=== PATIENT | male | born 1960 | race Caucasian/White ===

== ENCOUNTER 2021-10-11 09:56 | Emergency (ER) | payer MEDICAID, SELFPAY ==
[2021-10-11 10:03] VITALS: BP 127/100; PULSE 66; RESP 20; TEMP 35.7; O2SAT 96; BMI 25.7
--- NOTE | 2021-10-11 10:17 | CRLHL7_ITS ---
For Patients: As a result of the Century Cures Act, medical imaging exams and procedure reports are released immediately into your electronic medical record. You may view this report before your referring provider. If you have questions, please contact your health care provider. Indication: Dizziness Technique : Noncontrast head CT Comparison: No comparison Findings: Axial noncontrast images through the brain parenchyma demonstrates no acute intracranial hemorrhage or mass. No midline shift. No abnormal extra-axial air fluid collections are seen. Skull scalp appear unremarkable. Impression: No acute intracranial hemorrhage or mass. Please note that all CT scans at this facility use dose modulation, iterative reconstruction, and/or weight-based dosing when appropriate to reduce radiation dose to as low as reasonably achievable. Dictated by Rimma Degroot MD @ 10/11/2021 11:03:08 AM (Electronically Signed)
--- NOTE | 2021-10-11 10:20 | ED.GENADULT ---
HPI - General Adult General Time Seen by Provider: 10:19 Date Seen: 10/11/21 Chief complaint: Dizziness/Vertigo Stated complaint: Dizzy Time Seen by Provider: 10/11/21 10:00 Source: patient Mode of arrival: ambulatory Limitations: no limitations History of Present Illness HPI narrative: Patient is a 61 year white male diabetic, has had a history of a cardiac stent, who presents with dizziness since about 8:00 p.m. last night. [place] started to feel dizzy off balance a little disoriented. Disc denies drug or alcohol use. He does not have chest pain, shortness of breath, COVID symptoms. His blood sugar was elevated last night he reports in the 500 range. He did not take his insulin this morning, as he has not been eating because of his symptoms. He has no abdominal pain. No diarrhea, he does report that he was having to go to the bathroom both urine and stool more regularly than normal. Denies leg swelling or edema, clotting disorders. His chart was reviewed Related Data Home Medications Medication Instructions Recorded Confirmed atorvastatin 80 mg tablet mg 10/11/21 blood sugar diagnostic (Contour 10/11/21 10/11/21 Next Test Strips) exenatide microspheres 2 mg/0.85 mg SUBCUT 10/11/21 mL subcutaneous auto-injector ([employer]) gabapentin 100 mg capsule mg 10/11/21 hydroxyzine HCl 25 mg tablet mg 10/11/21 insulin aspart U-100 100 unit/mL SUBCUT 10/11/21 (3 mL) subcutaneous pen (Novolog Flexpen U-100 Insulin aspart) insulin glargine 100 unit/mL (3 unit SUBCUT 10/11/21 mL) subcutaneous pen (Lantus Solostar U-100 Insulin) losartan 25 mg tablet mg 10/11/21 metformin 500 mg tablet,extended mg PO 10/11/21 release 24 hr metoprolol succinate 50 mg mg PO 10/11/21 tablet,extended release 24 hr naproxen sodium 220 mg capsule mg 10/11/21 nitroglycerin 0.4 mg sublingual mg 10/11/21 tablet pen needle, diabetic 32 gauge x 10/11/21 10/11/2132 (BD Jaymie 2nd Gen Pen Needle) tadalafil 20 mg tablet mg 10/11/21 Allergies Allergy/AdvReac Type Severity Reaction Status Date / Time lisinopril AdvReac Verified 10/11/21 10:11 Review of Systems Status of ROS: Reports: 10 or more systems reviewed and unremarkable except as noted in History and below [facility] Medical History (Updated 10/11/21 @ 12:12 by Ilya Vanessa MD) DM (diabetes mellitus), type 2 Hyperlipidemia Hypertension Myocardial infarction Surgical History (Updated 10/11/21 @ 10:59 by Brigida Celis RN) History of back surgery History of eye surgery History of surgery on arm Stented coronary artery Family History Father Bladder cancer Prostate cancer Mother Heart disease Social History Narrative: exercise regularly former smoker Smoking Status: Former smoker Do you use any of these nicotine containing products: None Second hand tobacco smoke exposure: Yes How often do you have a drink containing alcohol: never How often do you have six or more drinks on one occasion: Never AUDIT-C Alcohol total score: 0 Non-prescribed substance use: denies use Exam Narrative: Exam Narrative: Objective: In general the patient is alert or x3 HEENT is unremarkable no facial asymmetry, mouth clear slightly dry, neck is supple Chest is clear Heart rhythm regular without murmur Abdomen benign soft nontender no hepatosplenomegaly Extremities are no edema, neurologic nonfocal in upper lower extremities No CMS distally problems Skin exam is unremarkable Const: Vital Signs, click to edit/add: Vital Signs - 24 hr 10/11/21 10:03 10/11/21 10:38 10/11/21 11:00 Temperature 96.3 F L Pulse Rate [Left P ulse Oximeter] 66 66 61 Respiratory Rate 20 12 12 Blood Pressure [Le ft Upper Arm] 127/100 H 128/90 H 120/78 Pulse Oximetry 96 97 96 Course Course Hospital Course: Because of the patient's cardiac history, as well as diabetic status will get an EKG, head CT scan given his dizziness, will also get laboratory studies. Will also get a troponin. Will give him IV fluid, Ativan, Zofran. He did report some el nasal tingling that now has resolved. Did not seem one-sided. Vital Signs Vital signs: Initial Vital Signs Temperature 96.3 F L 10/11/21 10:03 Temperature Source Temporal Artery Scan 10/11/21 10:03 Pulse Rate 66 10/11/21 10:03 Respiratory Rate 20 10/11/21 10:03 Blood Pressure 127/100 H 10/11/21 10:03 Blood Pressure Mean 109 10/11/21 10:03 Blood Pressure Position Sitting 10/11/21 10:03 Pulse Oximetry 96 10/11/21 10:03 Oxygen Delivery Method 10/11/21 10:03 Vital Signs Temperature 96.3 F L 10/11/21 10:03 Pulse Rate 66 10/11/21 10:03 Respiratory Rate 20 10/11/21 10:03 Blood Pressure 127/100 H 10/11/21 10:03 Pulse Oximetry 96 10/11/21 10:03 Temperature 96.3 F L 10/11/21 10:03 Pulse Rate 61 10/11/21 11:00 Respiratory Rate 12 10/11/21 11:00 Blood Pressure 120/78 10/11/21 11:00 Pulse Oximetry 96 10/11/21 11:00 Medical Decision Making [facility] Narrative Medical decision making narrative: Patient has a history of insulin-dependent diabetes, hyperglycemia noted yesterday, no insulin usage today I suspect he has got elevated blood sugar today. 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 Rule out viral syndrome, rule out acute coronary syndrome, rule out diabetic complication of hyperglycemia. Addendum: The patient's CT scan of the head is negative by my read his EKG shows normal sinus rhythm no acute ST T wave changes, his blood sugar was elevated 320 range. Because he has not been eating and not going to give additional insulin now but he can take this at home and he will follow his rib use additional regular as needed after he eats. He feels much better. He has no chest pain, his dizziness is improved. I think we can let him go home. His telemetry has shown no arrhythmia. Update Dr. Becker in the next couple of days with symptoms light activity, fluids, rest, careful monitoring his blood sugar. Return as needed sooner. Medical Records Medical records reviewed: Yes I reviewed the patient's medical records Lab Data Labs: Lab Results 10/11/21 10/11/21 10/11/21 Range/Units 10:40 10:40 11:08 WBC 6.24 (4.50-11.00) K/uL RBC 4.79 (4.30-5.90) m/uL Hgb 14.7 (13.5-17.5) gm/dL Hct 42.9 (37.0-53.0) % MCV 90 (80-100) fL MCH 31 (26-34) pg MCHC 34 (32-36) gm/dL RDW Coeff of Sang 11.7 (11.5-15.5) % Plt Count 201 (140-440) K/uL Neut % (Auto) 71.8 (42.0-72.0) % Lymph % (Auto) 15.1 L (20-44) % [place] % (Auto) 10.3 (0.0-11.0) % Eos % (Auto) 2.1 (0.0-7.0) % Baso % (Auto) 0.5 (0.0-3.0) % Neut # (Auto) 4.49 (1.7-7.0) K/uL Lymph # (Auto) 0.90 (0.90-2.90) K/uL [place] # (Auto) 0.60 (0.00-0.90) K/UL Eos # (Auto) 0.13 (0.00-0.50) K/uL Baso # (Auto) 0.03 (0.00-0.30) K/uL Abs Immat Gran (auto) 0.01 (0.00-0.30) K/uL Sodium 136 (135-149) mmol/L Potassium 4.3 (3.6-5.1) mmol/L Chloride 106 (96-114) mmol/L Carbon Dioxide 27 (20-32) mmol/L BUN 17 (7-30) mg/dL Creatinine 0.6 (0.5-1.5) mg/dL Estimated Creat Clear 132.56 Glucose 329 H (60-115) mg/dL Calcium 9.4 (8.4-10.6) mg/dL C-Reactive Protein < 0.5 L (0.5-1.0) mg/dL Urine Color Yellow (Yellow) Urine Appearance Clear (Clear) Urine pH 6.0 (5.0-8.5) Ur Specific [place] 1.025 (1.000-1.030) Urine Protein Negative (Negative) Urine Glucose (UA) 2+ A (Negative) Urine Ketones 2+ A (Negative) Urine Blood Negative (Negative) Urine Nitrite Negative (Negative) Urine Bilirubin Negative (Negative) Urine Urobilinogen 0.2 (0.2-1.0) Ur Leukocyte Esterase Negative (Negative) Urine RBC 0-2 (0-2) Urine WBC 0-2 (0-5) Ur Squamous Epith Cells None (None-Few) Amorphous Sediment (None) Other Sediment (None) Urine Bacteria None (None) Urine Mucus (None) POC Troponin I (0.01-0.04) ng/ml 10/11/21 Range/Units 11:08 WBC (4.50-11.00) K/uL RBC (4.30-5.90) m/uL Hgb (13.5-17.5) gm/dL Hct (37.0-53.0) % MCV (80-100) fL MCH (26-34) pg MCHC (32-36) gm/dL RDW Coeff of Sang (11.5-15.5) % Plt Count (140-440) K/uL Neut % (Auto) (42.0-72.0) % Lymph % (Auto) (20-44) % [place] % (Auto) (0.0-11.0) % Eos % (Auto) (0.0-7.0) % Baso % (Auto) (0.0-3.0) % Neut # (Auto) (1.7-7.0) K/uL Lymph # (Auto) (0.90-2.90) K/uL [place] # (Auto) (0.00-0.90) K/UL Eos # (Auto) (0.00-0.50) K/uL Baso # (Auto) (0.00-0.30) K/uL Abs Immat Gran (auto) (0.00-0.30) K/uL Sodium (135-149) mmol/L Potassium (3.6-5.1) mmol/L Chloride (96-114) mmol/L Carbon Dioxide (20-32) mmol/L BUN (7-30) mg/dL Creatinine (0.5-1.5) mg/dL Estimated Creat Clear Glucose (60-115) mg/dL Calcium (8.4-10.6) mg/dL C-Reactive Protein (0.5-1.0) mg/dL Urine Color (Yellow) Urine Appearance (Clear) Urine pH (5.0-8.5) Ur Specific [place] (1.000-1.030) Urine Protein (Negative) Urine Glucose (UA) (Negative) Urine Ketones (Negative) Urine Blood (Negative) Urine Nitrite (Negative) Urine Bilirubin (Negative) Urine Urobilinogen (0.2-1.0) Ur Leukocyte Esterase (Negative) Urine RBC (0-2) Urine WBC (0-5) Ur Squamous Epith Cells (None-Few) Amorphous Sediment (None) Other Sediment (None) Urine Bacteria (None) Urine Mucus (None) POC Troponin I 0.00 L (0.01-0.04) ng/ml Discharge Plan Discharge Clinical Impression: Dizziness, Acute hyperglycemia Patient Disposition: Home w/ Parent or Adult Condition: Improved Additional Instructions: Update Dr. Solis in the next couple of days, regular monitoring of blood sugar, small frequent meals. Light activity. Return sooner problems or concerns. Resume home medications Activity Level: Light activity Discharge Diet: Diabetic Prescriptions: No Action atorvastatin 80 mg tablet 0RF Label Comments: TAKE 1 TABLET BY MOUTH AT BEDTIME metoprolol succinate 50 mg tablet extended release 24 hr PO 0RF Label Comments: TAKE 1 TABLET BY MOUTH DAILY. (DME) Contour Next Test Strips Strip MISCELLANEOUS 0RF Label Comments: USE TO TEST FOUR TIMES A DAY losartan 25 mg tablet 0RF Label Comments: TAKE 1 TABLET BY MOUTH DAILY. nitroglycerin 0.4 mg tablet, sublingual 0RF Label Comments: TAKE 1 TABLET SUBLINGUALLY EVERY 5 MIN NEEDED hydroxyzine HCl 25 mg tablet 0RF Label Comments: TAKE 0.5 TO 1 TABLET EVERY 8 HOURS NEEDED FOR ANXIETY. gabapentin 100 mg capsule 0RF Label Comments: TAKE 1-3 CAPSULES BY MOUTH DAILY AT BEDTIME. metformin 500 mg tablet extended release 24 hr PO 0RF insulin aspart U-100 [Novolog Flexpen U-100 Insulin] 100 unit/mL (3 mL) insulin pen SUBCUT 0RF Label Comments: INJECT 5-10 UNIT SUBQ 3 TIMES DAILY WITH MEALS. tadalafil 20 mg tablet 0RF Label Comments: TAKE ONE TABLET BY MOUTH DIRECTED NEEDED EVERY 48-72 HOURS . insulin glargine [Lantus Solostar U-100 Insulin] 100 unit/mL (3 mL) insulin pen SUBCUT 0RF Label Comments: INJECT 50-60 UNITS SUBCUTANEOUSLY DAILY AT BEDTIME. (DME) pen needle, diabetic [BD Jaymie 2nd Gen Pen Needle] 32 gauge x 5/32 needle MISCELLANEOUS 0RF Label Comments: USE 1 SUBQUTANEOUSLY 4 TIMES A DAY *NEXT REFILL NEEDS TO COME FROM THERMODYNAMICS ENGINEER naproxen sodium 220 mg capsule 0RF Label Comments: TAKE 1 CAPSULE BY MOUTH TWICE A DAY NEEDED Bydureon BCise 2 mg/0.85 mL auto-injector SUBCUT 0RF Label Comments: INJECT 0.85 ML SUBCUTANEOUSLY ONCE A WEEK. Follow Up/Referrals: Jurgen Morrissey MD [Primary Care Provider] - Stand Alone Forms: [facility] Info Instructions
[2021-10-11 10:38] VITALS: BP 128/90; PULSE 66; RESP 12; O2SAT 97
[2021-10-11 10:54] LABS: Basophils Absolute Auto 0.03 K/uL (0.00-0.30); Basophils Percent Auto 0.5 % (0.0-3.0); Eosinophils Absolute Auto 0.13 K/uL (0.00-0.50); Eosinophils Percent Auto 2.1 % (0.0-7.0); Hematocrit 42.9 % (37.0-53.0); Hemoglobin* 14.7 gm/dL (13.5-17.5); Immature Granulocytes Abs Auto 0.01 K/uL (0.00-0.30); Lymphocytes Percent Auto 15.1 % (20-44); Mean Corpuscular HGB Conc 34 gm/dL (32-36); Mean Corpuscular Hemoglobin 31 pg (26-34); Mean Corpuscular Volume 90 fL (80-100); Monocytes Percent Auto 10.3 % (0.0-11.0); Neutrophils Absolute Auto 4.49 K/uL (1.7-7.0); Neutrophils Percent Auto 71.8 % (42.0-72.0); Platelet Count* 201 K/uL (140-440); RDW Coefficient of Variation % 11.7 % (11.5-15.5); Red Blood Count 4.79 m/uL (4.30-5.90); White Blood Count* 6.24 K/uL (4.50-11.00)
[2021-10-11] MEDS: 0.9 % SODIUM CHLORIDE 1000 ml 1,000 ML 6000 ML IV (10:54)
[2021-10-11] MEDS: LORazepam 1 MG TABLET PO (10:54)
[2021-10-11] MEDS: ONDANSETRON 2 MG/ML inj 4 MG IVP (10:55)
[2021-10-11 11:00] VITALS: BP 120/78; PULSE 61; RESP 12; O2SAT 96
[2021-10-11 11:04] LABS: Slide Review Reflex No
[2021-10-11 11:05] LABS: Chloride* 106 mmol/L (96-114); Sodium* 136 mmol/L (135-149)
[2021-10-11 11:06] LABS: Potassium* 4.3 mmol/L (3.6-5.1)
[2021-10-11 11:08] LABS: Creatinine* 0.6 mg/dL (0.5-1.5); Est. Creatinine Clearance* 132.56
[2021-10-11 11:09] LABS: Blood Urea Nitrogen* 17 mg/dL (7-30); Calcium* 9.4 mg/dL (8.4-10.6); Carbon Dioxide* 27 mmol/L (20-32); Glucose* 329 mg/dL (60-115)
[2021-10-11 11:17] LABS: Appearance Urine Clear (Clear); Bilirubin Urine Negative (Negative); Blood Urine Negative (Negative); Color Urine Yellow (Yellow); Glucose Urine 2+ (Negative); Ketones Urine 2+ (Negative); Leukocyte Esterase Urine Negative (Negative); Nitrite Urine Negative (Negative); Protein Urine Negative (Negative); Specific Gravity Urine 1.025 (1.000-1.030); Urobilinogen Urine 0.2 (0.2-1.0)
[2021-10-11 11:20] LABS: C Reactive Protein* < 0.5 mg/dL (0.5-1.0)
[2021-10-11 11:30] VITALS: BP 126/82; PULSE 61; RESP 12; O2SAT 96
[2021-10-11 11:43] LABS: SARS PCR* Negative SARS-CoV-2 (Negative)
[2021-10-11 11:45] LABS: RBC Urine 0-2 (0-2); WBC Urine 0-2 (0-5)
[2021-10-11 12:00] VITALS: BP 132/86; PULSE 68; RESP 16; O2SAT 96
[2021-10-11 12:25] VITALS: BP 132/86; PULSE 68; RESP 16
== END 2021-10-11 12:20 ==
PROVIDERS: Emergency Provider Family Medicine; PCP Family Medicine
DX: E11.65 Type 2 diabetes mellitus with hyperglycemia (principal)
CPT/HCPCS: 96374; 36415; 70450; 80048; 81001; 84484; 85025; 86140; 87086; 87635; 93005; 99284; 99285; A9270; J2405; J7030

== ENCOUNTER 2021-11-18 16:29 | Outpatient (CLI) | payer MEDICAID, SELFPAY ==
[2021-11-18 21:58] LABS: Microalbumin Creatinine Ratio 20 mg/g (0-30); Microalbumin Urine 3 mg/dL
== END 2021-11-18 16:30 | disposition home or self-care (01) ==
PROVIDERS: PCP Family Medicine; Visit Provider Family Medicine
DX: E11.9 Type 2 diabetes mellitus without complications (principal); I10 Essential (primary) hypertension; Z79.4 Long term (current) use of insulin
CPT/HCPCS: 82043; 82570

== ENCOUNTER 2022-03-03 08:54 | Inpatient (IN) | payer MEDICAID, SELFPAY ==
[2022-03-03] VITALS (15 sets, daily range): BP systolic 116–187; BP diastolic 74–95; PULSE 95–122; RESP 20–22; TEMP 35.8–37.1; O2SAT 97–100; BMI 26.6; BMI 25.1
--- NOTE | 2022-03-03 09:55 | CRLHL7_ITS ---
For Patients: As a result of the Cures Act, medical imaging exams and procedure reports are released immediately into your electronic medical record. You may view this report before your referring provider. If you have questions, please contact your health care provider. INDICATION: Shortness of breath TECHNIQUE: Chest 1 view COMPARISON: 03/02/2022 FINDINGS: Cardiovascular and mediastinum: Heart size and vasculature are normal in caliber and appearance. Lungs and pleural spaces: Lungs are clear. No sign of infiltrate or mass. No sign of pleural effusion. No pneumothorax. Bones and soft tissues: Degenerative changes of both shoulders. Discogenic spurring thoracic spine. IMPRESSION: No acute findings. No developing CHF. Dictated by Joao Barragan MD @ 03/03/2022 10:39:02 AM (Electronically Signed)
[2022-03-03 10:07] LABS: Appearance Urine Clear (Clear); Bilirubin Urine Negative (Negative); Blood Urine 2+ (Negative); Color Urine Yellow (Yellow); Glucose Urine 2+ (Negative); Ketones Urine 4+ (Negative); Leukocyte Esterase Urine Negative (Negative); Nitrite Urine Negative (Negative); Protein Urine 2+ (Negative); Specific Gravity Urine >= 1.030 (1.000-1.030); Urobilinogen Urine 0.2 (0.2-1.0)
[2022-03-03 10:14] LABS: HCO3 VBG 4 mmol/L (21-28); PCO2 VBG 24 mmHG (40-50); PO2 VBG 48.9 mmHG (25-47)
[2022-03-03 10:17] LABS: pH VBG 6.868 (7.32-7.43)
[2022-03-03] MEDS: 0.9 % SODIUM CHLORIDE 1000 ml 1,000 ML IV ×2 (10:27→11:12)
[2022-03-03 10:32] LABS: Lactate* 5.5 mmol/L (0.5-1.9)
[2022-03-03 10:34] LABS: D Dimer Quantitative* 2.07 ug/ml (0.00-0.50)
[2022-03-03 10:35] LABS: RBC Urine 0-2 (0-2); Squamous Epithelial Cell Urine Few (None-Few); WBC Urine 0-2 (0-5)
[2022-03-03 10:36] LABS: Albumin* 5.3 g/dL (3.3-5.0)
[2022-03-03 10:37] LABS: Amorphous Sediment Urine Few
[2022-03-03 10:37] LABS: Chloride* 101 mmol/L (96-114); Sodium* 135 mmol/L (135-149)
[2022-03-03 10:39] LABS: Creatinine* 1.4 mg/dL (0.5-1.5); Est. Creatinine Clearance* 53.12; Estimated Glomerular Filt Rate 58 ml/min
[2022-03-03 10:40] LABS: Alanine Aminotransferase* 26 U/L (4-50); Alkaline Phosphatase* 177 U/L (40-150); Aspartate Amino Transferase* 24 U/L (12-35); Bilirubin Direct* 0.5 mg/dL (0.0-0.5); Bilirubin Total* 0.6 mg/dL (0.1-1.5); Blood Urea Nitrogen* 24 mg/dL (7-30); Calcium* 9.9 mg/dL (8.4-10.6); Lipase* 58 U/L (23-300)
[2022-03-03 10:43] LABS: C Reactive Protein* 6.5 mg/dL (0.5-1.0)
[2022-03-03 10:49] LABS: Carbon Dioxide* < 5 mmol/L (20-32); NT Pro B Type NatriureticPept* 56 PG/mL (0-125); Potassium* 7.1 mmol/L (3.6-5.1)
[2022-03-03 10:50] LABS: Ethanol* < 0.01 % (0.01-0.03); Glucose* 625 mg/dL (60-115)
[2022-03-03 10:56] LABS: PCR FLU A Negative PCR FLU A (Negative); PCR FLU B Negative PCR FLU B (Negative); SARS PCR* Negative SARS-CoV-2 (Negative)
[2022-03-03 10:57] LABS: PCR RSV Negative PCR RSV (Negative)
[2022-03-03 11:29] LABS: Troponin I* < 0.01 ng/mL (0.01-0.04)
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
[2022-03-03] MEDS: INSULIN INF 100 UNIT/100 ML 100 UNIT/100 ML BAG 8 UNIT IVPB (11:44)
[2022-03-03] MEDS: SODIUM BICARBONATE 50 MEQ/50ML SYRINGE IVP ×3 (11:46→13:44)
[2022-03-03] MEDS: LORazepam 2 MG/ML inj 1 MG IVP (11:47)
[2022-03-03 12:37] LABS: HCO3 VBG 6 mmol/L (21-28); PCO2 VBG 25 mmHG (40-50)
[2022-03-03 12:45] LABS: pH VBG 6.982 (7.32-7.43)
[2022-03-03 12:56] LABS: Chloride* 110 mmol/L (96-114); Potassium* 5.8 mmol/L (3.6-5.1); Sodium* 141 mmol/L (135-149)
[2022-03-03 12:58] LABS: Creatinine* 1.2 mg/dL (0.5-1.5); Est. Creatinine Clearance* 61.97; Estimated Glomerular Filt Rate 70 ml/min
[2022-03-03 12:59] LABS: Blood Urea Nitrogen* 24 mg/dL (7-30); Calcium* 8.8 mg/dL (8.4-10.6)
[2022-03-03 13:00] LABS: Magnesium* 2.3 mg/dL (1.5-2.6)
[2022-03-03 13:01] LABS: Glucose* 490 mg/dL (60-115)
[2022-03-03] MEDS: 0.45 % SODIUM CHLORIDE 1000 ML 1,000 ML 100 ML IV (13:43)
[2022-03-03 14:30] LABS: HCO3 VBG 9 mmol/L (21-28); PCO2 VBG 27 mmHG (40-50); PO2 VBG 32.4 mmHG (25-47)
[2022-03-03 14:52] LABS: Chloride* 110 mmol/L (96-114); Potassium* 4.6 mmol/L (3.6-5.1); Sodium* 139 mmol/L (135-149)
[2022-03-03 14:55] LABS: Blood Urea Nitrogen* 23 mg/dL (7-30); Calcium* 8.6 mg/dL (8.4-10.6); Est. Creatinine Clearance* 74.36; Estimated Glomerular Filt Rate 87 ml/min
[2022-03-03 15:02] LABS: Carbon Dioxide* 9 mmol/L (20-32); Glucose* 383 mg/dL (60-115)
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
[2022-03-03 16:49] LABS: HCO3 VBG 13 mmol/L (21-28); PCO2 VBG 32 mmHG (40-50); PO2 VBG 28.1 mmHG (25-47)
[2022-03-03 16:53] LABS: pH VBG 7.227 (7.32-7.43)
[2022-03-03] MEDS: PANTOPRAZOLE SODIUM 40 MG INJ IVP (16:59)
[2022-03-03] MEDS: BENZOCAINE/MENTHOL 1 EACH LOZENGE MUCOUS MEM (17:00)
[2022-03-03 17:15] LABS: Chloride* 109 mmol/L (96-114); Potassium* 4.1 mmol/L (3.6-5.1); Sodium* 137 mmol/L (135-149)
[2022-03-03 17:17] LABS: Creatinine* 0.9 mg/dL (0.5-1.5); Est. Creatinine Clearance* 82.63; Estimated Glomerular Filt Rate 98 ml/min
[2022-03-03 17:18] LABS: Blood Urea Nitrogen* 23 mg/dL (7-30); Calcium* 8.7 mg/dL (8.4-10.6); Carbon Dioxide* 12 mmol/L (20-32); Glucose* 271 mg/dL (60-115)
--- NOTE | 2022-03-03 18:33 | PC.NURSE ---
Addendum entered by Rosalia Chapa RN 03/03/22 19:18: Blood glucose checked @ 1855 and was 184, updated and ordered insulin drip to be turned to 10units/hr. Original Note: Shift Summary: Patient pleasant and cooperative. Weak with unsteady gait, needing SBA with gait belt to bathroom, independent at baseline. Continues to have IV insulin with hourly blood glucose checks. Tele shows sinus tach. Denies chest pain but reports SOB, o2 sats >90% on RA. Dry cough which patient stated he has had since tuesday. Poor appetite reported since tuesday.
[2022-03-03] MEDS: INSULIN INF 100 UNIT/100 ML 100 UNIT/100 ML BAG 10 UNIT IVPB (19:00)
[2022-03-03 20:11] LABS: HCO3 VBG 20 mmol/L (21-28); PCO2 VBG 38 mmHG (40-50); PO2 VBG 24.8 mmHG (25-47); pH VBG 7.318 (7.32-7.43)
[2022-03-03 20:26] LABS: Chloride* 110 mmol/L (96-114)
[2022-03-03 20:27] LABS: Potassium* 4.2 mmol/L (3.6-5.1); Sodium* 137 mmol/L (135-149)
[2022-03-03 20:29] LABS: Creatinine* 0.8 mg/dL (0.5-1.5); Est. Creatinine Clearance* 92.95; Estimated Glomerular Filt Rate 102 ml/min
[2022-03-03 20:30] LABS: Blood Urea Nitrogen* 21 mg/dL (7-30); Calcium* 8.8 mg/dL (8.4-10.6); Carbon Dioxide* 19 mmol/L (20-32); Glucose* 171 mg/dL (60-115)
[2022-03-03] MEDS: ENOXAPARIN 40 MG/0.4 ML INJ SUBCUT (21:33)
[2022-03-03] MEDS: 5 % DEX/0.45 SOD CHL+KCL20 mEq 1,000 ML 150 ML IV (21:33)
[2022-03-03 23:26] LABS: HCO3 VBG 17 mmol/L (21-28); PCO2 VBG 32 mmHG (40-50); PO2 VBG 62.7 mmHG (25-47); pH VBG 7.341 (7.32-7.43)
[2022-03-03 23:42] LABS: Chloride* 111 mmol/L (96-114); Potassium* 3.7 mmol/L (3.6-5.1); Sodium* 135 mmol/L (135-149)
[2022-03-03 23:45] LABS: Blood Urea Nitrogen* 18 mg/dL (7-30); Carbon Dioxide* 16 mmol/L (20-32); Creatinine* 0.6 mg/dL (0.5-1.5); Est. Creatinine Clearance* 123.94; Estimated Glomerular Filt Rate 111 ml/min
[2022-03-03 23:46] LABS: Calcium* 8.5 mg/dL (8.4-10.6); Glucose* 145 mg/dL (60-115)
[2022-03-04] VITALS (11 sets, daily range): BP systolic 110–140; BP diastolic 71–105; PULSE 80–103; RESP 18–20; TEMP 36.5–37.1; O2SAT 92–100
[2022-03-04] MEDS: 5 % DEX/0.45 SOD CHL+KCL20 mEq 1,000 ML 150 ML IV (04:11)
--- NOTE | 2022-03-04 05:02 | PC.NURSE ---
Shift note: The pt had been on Insulin drip ; which was stopped at 2200 last night after Anion gap was closed by . Blood glucose has been checked q2h after the drip was stopped, and NovoLog given per sliding scale. The pt appeared fatigue; he has been sleeping comfortable ; denied chest pain. Denied nausea and vomiting. The pt drunk small apple juice and refused to try to eat. The pt has been coughing dry and this Am reported productive cough. Tele was showing sinus Tachycardia last evening, throughout the night NSR with HR in the 90s.
--- NOTE | 2022-03-04 07:43 | P.IMPN_ITS ---
Progress Note: A&P Assessment and plan (1) DKA, type 2: Problem details: - given bicarb and IVF bolus in ED - started on insulin drip for + AG acidosis - on admission, treated with insulin drip, IV fluids, potassium supplementation (all discontinued after resolution of acidosis) - Basal insulin restarted 03/03 pm, will continue mealtime insulin at home dose with sliding scale coverage to help guide discharge regimen - this degree of illness is concerning for type 1DM diagnosis. Consider outpatient Endocrinology f/u Status: Acute (2) Shortness of breath: Problem details: - likely 2/2 acidosis, no concern for acute cardiac or respiratory process - follow troponin given history - resolved with resolution of acidosis Status: Acute (3) Cough: Problem details: - no evidence of acute infection by exam or chest x-ray - symptomatic cares, consider chest CT if symptoms were to worsen Status: Acute (4) Essential hypertension: Problem details: - stable, continue home meds Status: Acute (5) Hypercholesterolemia: Problem details: - stable, continue home meds - 07/23/2021-LDL 66 Status: Acute Plan - per above - Lovenox for prophylaxis - plans to discharge home when clinically appropriate Subjective Date Seen: 03/04/22 Interval history: Patient's acidosis resolved overnight, insulin gtt discontinued, basal insulin given. Patient complains of cough this morning, no other concerns. No nausea today, ready to eat breakfast. Exam Narrative: Exam Narrative: GEN: Alert and oriented, sitting comfortably in bed and answering questions appropriately HEENT: Normal external ears, EOMIs bilaterally, right pupil abnormality is stable, baseline, unchanged CV: RRR, No concerning murmurs, rubs, or gallops R: LCTA bilaterally without concerning wheezing, rales, or rhonchi Ext: wwp, no concerning edema Skin: No concerning skin lesions or rashes on exposed skin Neuro: Nonfocal Psych: Appropriate Const: Vital Signs, click to edit/add: Vital Signs - 24 hr 03/03/22 09:04 03/03/22 09:54 03/03/22 12:02 Temperature 96.5 F L Pulse Rate Pulse Rate [Left P ulse Oximeter] 100 Respiratory Rate 22 Blood Pressure 149/89 H Blood Pressure [Le ft Arm] Blood Pressure [Ri ght Upper Arm] 187/95 H Pulse Oximetry 99 99 Oxygen Delivery Me thod Room Air 03/03/22 13:39 03/03/22 13:42 03/03/22 14:00 Temperature Pulse Rate 120 H 120 H 114 H Pulse Rate [Left P ulse Oximeter] Respiratory Rate Blood Pressure 144/89 H Blood Pressure [Le ft Arm] Blood Pressure [Ri ght Upper Arm] Pulse Oximetry 98 100 99 Oxygen Delivery Me thod 03/03/22 14:37 03/03/22 15:00 03/03/22 15:30 Temperature Pulse Rate 122 H 112 H 109 H Pulse Rate [Left P ulse Oximeter] Respiratory Rate Blood Pressure Blood Pressure [Le ft Arm] Blood Pressure [Ri ght Upper Arm] Pulse Oximetry 99 99 98 Oxygen Delivery Me thod 03/03/22 16:24 03/03/22 16:34 03/03/22 16:47 Temperature 98.5 F Pulse Rate 109 H Pulse Rate [Left P ulse Oximeter] 118 H Respiratory Rate 20 20 Blood Pressure Blood Pressure [Le ft Arm] 116/75 Blood Pressure [Ri ght Upper Arm] Pulse Oximetry 98 98 Oxygen Delivery Me thod Room Air Room Air 03/03/22 20:00 03/03/22 23:30 03/03/22 23:30 Temperature 98.5 F 98.7 F Pulse Rate Pulse Rate [Left P ulse Oximeter] 105 H 96 Respiratory Rate 20 20 20 Blood Pressure Blood Pressure [Le ft Arm] 121/78 121/74 Blood Pressure [Ri ght Upper Arm] Pulse Oximetry 100 97 97 Oxygen Delivery Me thod Room Air Room Air Room Air 03/03/22 23:00 03/04/22 00:13 03/04/22 04:00 Temperature 98.4 F Pulse Rate 95 Pulse Rate [Left P ulse Oximeter] 96 91 Respiratory Rate 20 20 Blood Pressure Blood Pressure [Le ft Arm] 130/78 Blood Pressure [Ri ght Upper Arm] Pulse Oximetry 99 Oxygen Delivery Me thod Room Air 03/04/22 04:00 Temperature Pulse Rate Pulse Rate [Left P ulse Oximeter] 91 Respiratory Rate 20 Blood Pressure Blood Pressure [Le ft Arm] Blood Pressure [Ri ght Upper Arm] Pulse Oximetry Oxygen Delivery Me thod Labs Labs: Laboratory Results - last 24 hr 03/03/22 03/03/22 03/03/22 09:10 09:10 09:56 D-Dimer Quant (PE/DVT) VBG pH VBG pCO2 VBG pO2 VBG HCO3 Sodium Potassium Chloride Carbon Dioxide BUN Creatinine Estimated Creat Clear Estimated GFR Glucose Lactate Calcium Magnesium Total Bilirubin Direct Bilirubin AST ALT Alkaline Phosphatase Troponin I C-Reactive Protein NT-Pro-B Natriuret Pep Total Protein Albumin Lipase Urine Color Yellow Urine Appearance Clear Urine pH 5.0 Ur Specific [place] >= 1.030 Urine Protein 2+ A Urine Glucose (UA) 2+ A Urine Ketones 4+ A Urine Blood 2+ A Urine Nitrite Negative Urine Bilirubin Negative Urine Urobilinogen 0.2 Ur Leukocyte Esterase Negative Urine RBC 0-2 Urine WBC 0-2 Ur Squamous Epith Cells Few Amorphous Sediment Few A Urine Bacteria None Ethyl Alcohol SARS-CoV-2 (PCR) Cancelled Negative SARS-CoV-2 Influenza Type A (PCR) Cancelled Negative PCR FLU A Influenza Type B (PCR) Cancelled Negative PCR FLU B RSV (PCR) Negative PCR RSV 03/03/22 03/03/22 03/03/22 10:08 10:08 10:08 D-Dimer Quant (PE/DVT) 2.07 H VBG pH VBG pCO2 VBG pO2 VBG HCO3 Sodium 135 Potassium 7.1 H* Chloride 101 Carbon Dioxide < 5 L* BUN 24 Creatinine 1.4 Estimated Creat Clear 53.12 Estimated GFR 58 Glucose 625 H* Lactate 5.5 H* Calcium 9.9 Magnesium Total Bilirubin 0.6 Direct Bilirubin 0.5 AST 24 ALT 26 Alkaline Phosphatase 177 H Troponin I C-Reactive Protein 6.5 H NT-Pro-B Natriuret Pep Total Protein 9.0 H Albumin 5.3 H Lipase 58 Urine Color Urine Appearance Urine pH Ur Specific [place] Urine Protein Urine Glucose (UA) Urine Ketones Urine Blood Urine Nitrite Urine Bilirubin Urine Urobilinogen Ur Leukocyte Esterase Urine RBC Urine WBC Ur Squamous Epith Cells Amorphous Sediment Urine Bacteria Ethyl Alcohol < 0.01 L SARS-CoV-2 (PCR) Influenza Type A (PCR) Influenza Type B (PCR) RSV (PCR) 03/03/22 03/03/22 03/03/22 10:08 10:08 10:08 D-Dimer Quant (PE/DVT) VBG pH 6.868 L* VBG pCO2 24 L VBG pO2 48.9 H VBG HCO3 4 L Sodium Potassium Chloride Carbon Dioxide BUN Creatinine Estimated Creat Clear Estimated GFR Glucose Lactate Calcium Magnesium Total Bilirubin Direct Bilirubin AST ALT Alkaline Phosphatase Troponin I < 0.01 L C-Reactive Protein NT-Pro-B Natriuret Pep 56 Total Protein Albumin Lipase Urine Color Urine Appearance Urine pH Ur Specific [place] Urine Protein Urine Glucose (UA) Urine Ketones Urine Blood Urine Nitrite Urine Bilirubin Urine Urobilinogen Ur Leukocyte Esterase Urine RBC Urine WBC Ur Squamous Epith Cells Amorphous Sediment Urine Bacteria Ethyl Alcohol SARS-CoV-2 (PCR) Influenza Type A (PCR) Influenza Type B (PCR) RSV (PCR) 03/03/22 03/03/22 03/03/22 12:30 12:30 12:30 D-Dimer Quant (PE/DVT) VBG pH 6.982 L* VBG pCO2 25 L VBG pO2 33.0 VBG HCO3 6 L Sodium 141 Potassium 5.8 H Chloride 110 Carbon Dioxide BUN 24 Creatinine 1.2 Estimated Creat Clear 61.97 Estimated GFR 70 Glucose 490 H* Lactate Calcium 8.8 Magnesium 2.3 Total Bilirubin Direct Bilirubin AST ALT Alkaline Phosphatase Troponin I C-Reactive Protein NT-Pro-B Natriuret Pep Total Protein Albumin Lipase Urine Color Urine Appearance Urine pH Ur Specific [place] Urine Protein Urine Glucose (UA) Urine Ketones Urine Blood Urine Nitrite Urine Bilirubin Urine Urobilinogen Ur Leukocyte Esterase Urine RBC Urine WBC Ur Squamous Epith Cells Amorphous Sediment Urine Bacteria Ethyl Alcohol SARS-CoV-2 (PCR) Influenza Type A (PCR) Influenza Type B (PCR) RSV (PCR) 03/03/22 03/03/22 03/03/22 14:25 14:25 16:14 D-Dimer Quant (PE/DVT) VBG pH 7.150 L* 7.227 L* VBG pCO2 27 L 32 L VBG pO2 32.4 28.1 VBG HCO3 9 L 13 L Sodium 139 Potassium 4.6 Chloride 110 Carbon Dioxide 9 L* BUN 23 Creatinine 1.0 Estimated Creat Clear 74.36 Estimated GFR 87 Glucose 383 H* Lactate Calcium 8.6 Magnesium Total Bilirubin Direct Bilirubin AST ALT Alkaline Phosphatase Troponin I C-Reactive Protein NT-Pro-B Natriuret Pep Total Protein Albumin Lipase Urine Color Urine Appearance Urine pH Ur Specific [place] Urine Protein Urine Glucose (UA) Urine Ketones Urine Blood Urine Nitrite Urine Bilirubin Urine Urobilinogen Ur Leukocyte Esterase Urine RBC Urine WBC Ur Squamous Epith Cells Amorphous Sediment Urine Bacteria Ethyl Alcohol SARS-CoV-2 (PCR) Influenza Type A (PCR) Influenza Type B (PCR) RSV (PCR) 03/03/22 03/03/22 03/03/22 16:43 20:04 20:04 D-Dimer Quant (PE/DVT) VBG pH 7.318 L VBG pCO2 38 L VBG pO2 24.8 L VBG HCO3 20 L Sodium 137 137 Potassium 4.1 4.2 Chloride 109 110 Carbon Dioxide 12 L 19 L BUN 23 21 Creatinine 0.9 0.8 Estimated Creat Clear 82.63 92.95 Estimated GFR 98 102 Glucose 271 H 171 H Lactate Calcium 8.7 8.8 Magnesium Total Bilirubin Direct Bilirubin AST ALT Alkaline Phosphatase Troponin I C-Reactive Protein NT-Pro-B Natriuret Pep Total Protein Albumin Lipase Urine Color Urine Appearance Urine pH Ur Specific [place] Urine Protein Urine Glucose (UA) Urine Ketones Urine Blood Urine Nitrite Urine Bilirubin Urine Urobilinogen Ur Leukocyte Esterase Urine RBC Urine WBC Ur Squamous Epith Cells Amorphous Sediment Urine Bacteria Ethyl Alcohol SARS-CoV-2 (PCR) Influenza Type A (PCR) Influenza Type B (PCR) RSV (PCR) 03/03/22 03/03/22 23:15 23:15 D-Dimer Quant (PE/DVT) VBG pH 7.341 VBG pCO2 32 L VBG pO2 62.7 H VBG HCO3 17 L Sodium 135 Potassium 3.7 Chloride 111 Carbon Dioxide 16 L BUN 18 Creatinine 0.6 Estimated Creat Clear 123.94 Estimated GFR 111 Glucose 145 H Lactate Calcium 8.5 Magnesium Total Bilirubin Direct Bilirubin AST ALT Alkaline Phosphatase Troponin I C-Reactive Protein NT-Pro-B Natriuret Pep Total Protein Albumin Lipase Urine Color Urine Appearance Urine pH Ur Specific [place] Urine Protein Urine Glucose (UA) Urine Ketones Urine Blood Urine Nitrite Urine Bilirubin Urine Urobilinogen Ur Leukocyte Esterase Urine RBC Urine WBC Ur Squamous Epith Cells Amorphous Sediment Urine Bacteria Ethyl Alcohol SARS-CoV-2 (PCR) Influenza Type A (PCR) Influenza Type B (PCR) RSV (PCR)
[2022-03-04 07:51] LABS: HCO3 VBG 20 mmol/L (21-28); PCO2 VBG 35 mmHG (40-50); PO2 VBG 37.4 mmHG (25-47); pH VBG 7.373 (7.32-7.43)
[2022-03-04 07:52] LABS: Basophils Percent Auto 0.1 % (0.0-3.0); Eosinophils Percent Auto 0.1 % (0.0-7.0); Hematocrit 35.6 % (37.0-53.0); Hemoglobin* 12.7 gm/dL (13.5-17.5); Immature Granulocytes Pct Auto 0.2 %; Lymphocytes Percent Auto 8.5 % (20-44); Mean Corpuscular HGB Conc 36 gm/dL (32-36); Mean Corpuscular Hemoglobin 31 pg (26-34); Mean Corpuscular Volume 88 fL (80-100); Monocytes Percent Auto 11.7 % (0.0-11.0); Neutrophils Percent Auto 79.4 % (42.0-72.0); Platelet Count* 271 K/uL (140-440); RDW Coefficient of Variation % 11.5 % (11.5-15.5); Red Blood Count 4.05 m/uL (4.30-5.90); White Blood Count* 11.74 K/uL (4.50-11.00)
[2022-03-04 07:55] LABS: Slide Review Reflex No
[2022-03-04] MEDS: 5 % DEX/0.45 SOD CHL+KCL20 mEq 1,000 ML 75 ML IV ×2 (08:06→21:01)
[2022-03-04] MEDS: BENZOCAINE/MENTHOL 1 EACH LOZENGE MUCOUS MEM ×2 (08:13→21:18)
[2022-03-04 08:25] LABS: Albumin* 3.7 g/dL (3.3-5.0); Chloride* 109 mmol/L (96-114)
[2022-03-04 08:26] LABS: Potassium* 4.2 mmol/L (3.6-5.1); Sodium* 135 mmol/L (135-149)
[2022-03-04 08:28] LABS: Alkaline Phosphatase* 82 U/L (40-150); Aspartate Amino Transferase* 24 U/L (12-35); Bilirubin Total* 0.4 mg/dL (0.1-1.5); Blood Urea Nitrogen* 14 mg/dL (7-30); Carbon Dioxide* 18 mmol/L (20-32); Creatinine* 0.6 mg/dL (0.5-1.5); Est. Creatinine Clearance* 123.94; Estimated Glomerular Filt Rate 111 ml/min; Glucose* 258 mg/dL (60-115); Total Protein* 6.5 g/dL (6.0-8.3)
[2022-03-04 08:29] LABS: Alanine Aminotransferase* 17 U/L (4-50); Calcium* 8.6 mg/dL (8.4-10.6); Magnesium* 1.8 mg/dL (1.5-2.6)
[2022-03-04 08:41] LABS: Troponin I* 0.03 ng/mL (0.01-0.04)
[2022-03-04] MEDS: LOSARTAN POTASSIUM 50 MG TABLET PO (08:42)
[2022-03-04] MEDS: guaiFENesin 100 MG/ML CUP PO ×3 (08:42→19:41)
[2022-03-04] MEDS: METOPROLOL SUCCINATE (XL) 50 MG TAB PO (08:42)
[2022-03-04 10:31] LABS: Lactate* 1.2 mmol/L (0.5-1.9)
[2022-03-04] MEDS: PANTOPRAZOLE SODIUM 40 MG INJ IVP (15:31)
[2022-03-04] MEDS: ACETAMINOPHEN 325 MG TABLET 975 MG PO ×2 (15:31→21:03)
[2022-03-04] MEDS: SODIUM CHLORIDE 0.9 % (FLUSH) 10 ML SYRINGE 5 ML IVF (15:32)
--- NOTE | 2022-03-04 18:22 | PC.NURSE ---
End of shift note. Pt has been very pleasant. chest pain with coughing po tyleol was given with relief. he also got cough medicine with relief. :Pt BS 233/265/198 insulin was given. scheduled dose and sliding scale. pt is weak tired and fatigue; he is eating, drinking and voiding. Tele shows sinus Tachycardia. he complains of stuff nose and congestion in the throat. scds are on. he is up with SBA and IV pole to the BR. he has not been SOB or dizzy.
[2022-03-04] MEDS: CARBOXYMETHYLCELLULOSE (REFRESH PLUS) TEARS 1 DROP EYE-BOTH (21:02)
[2022-03-04] MEDS: ATORVASTATIN CALCIUM 40 MG TABLET 80 MG PO (21:02)
[2022-03-04] MEDS: ENOXAPARIN 40 MG/0.4 ML INJ SUBCUT (21:11)
--- NOTE | 2022-03-05 00:08 | PC.NURSE ---
Shift Note: Pt a/o and able to verbalize needs. VS WNL. Tele=NSR. Afebrile. Moves well with SBA. QI=281 and 198. Maintenance fluids running at 75/hr. Frequent cough with minimal expectoration, pt c/o chest discomfort with coughing. Tylenol and Robitussin given PRN. Pt also c/o eye discomfort, states it feels like there is sandpaper in my eyes. Upon initial assessment eyes appeared to have mild erythema to sclera without discharge. PRN eye drops given with little relief. Upon later assessment pt did begin to have greenish/yellow mucoid discharge and face was cleansed with warm washcloth. Pt is now experiencing moderate to large amounts of drainage and ongoing discomfort. MD updated and will come assess.
--- NOTE | 2022-03-05 00:24 | P.IMPN_ITS ---
Progress Note: A&P Assessment and plan (1) Conjunctivitis: Problem details: bilateral Status: Acute Assessment and Plan: I am not seeing any concerning symptoms or exam findings at this time. I flavio pect this is viral, but he is currently here for DKA it is likely somewhat immunocompromised. I will start erythromycin ointment. Subjective Time Seen by Provider: 00:25 Date Seen: 03/05/22 Interval history: I was called to see patient for worsening discharge from eyes. He says he feels awful and his eyes have felt like sandpaper all day. I feel like I'm allergic to something. He does not have a headache. 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 His left feels blurry from the discharge. No photophobia. Exam Narrative: Exam Narrative: General: No acute distress. A little flushed in his cheeks. Awake, alert, oriented x3. No pallor. No jaundice. Eyes: Bilateral conjunctivitis with mildly greenish mattering. Right pupil is chronically abnormal. Left pupil is reactive to light. Const: Vital Signs, click to edit/add: Vital Signs - 24 hr 03/04/22 04:00 03/04/22 04:00 03/04/22 09:23 Temperature 98.4 F Pulse Rate Pulse Rate [Left P ulse Oximeter] 91 91 Respiratory Rate 20 20 Blood Pressure [Le ft Arm] 130/78 Pulse Oximetry 99 99 Oxygen Delivery Me thod Room Air 03/04/22 07:30 03/04/22 07:30 03/04/22 07:30 Temperature Pulse Rate 99 Pulse Rate [Left P ulse Oximeter] 94 Respiratory Rate 18 18 Blood Pressure [Le ft Arm] Pulse Oximetry 99 Oxygen Delivery Me thod Room Air 03/04/22 07:30 03/04/22 11:20 03/04/22 11:20 Temperature 98.5 F 98.1 F Pulse Rate Pulse Rate [Left P ulse Oximeter] 94 103 H 103 H Respiratory Rate 18 18 18 Blood Pressure [Le ft Arm] 120/85 132/78 Pulse Oximetry 99 97 Oxygen Delivery Me thod Room Air Room Air 03/04/22 15:07 03/04/22 15:09 03/04/22 15:26 Temperature 98.8 F Pulse Rate 92 Pulse Rate [Left P ulse Oximeter] 96 Respiratory Rate 18 20 Blood Pressure [Le ft Arm] 112/74 Pulse Oximetry 95 96 Oxygen Delivery Me thod Room Air Room Air 03/04/22 15:27 03/04/22 19:00 03/04/22 19:00 Temperature 98.6 F Pulse Rate Pulse Rate [Left P ulse Oximeter] 96 93 95 Respiratory Rate 20 20 18 Blood Pressure [Le ft Arm] 110/71 Pulse Oximetry 93 Oxygen Delivery Me thod Room Air 03/04/22 23:00 03/04/22 23:00 03/04/22 23:00 Temperature Pulse Rate 81 Pulse Rate [Left P ulse Oximeter] 94 Respiratory Rate 18 18 Blood Pressure [Le ft Arm] Pulse Oximetry 92 Oxygen Delivery Me thod Room Air 03/04/22 23:00 Temperature 97.7 F Pulse Rate Pulse Rate [Left P ulse Oximeter] 80 Respiratory Rate 18 Blood Pressure [Le ft Arm] 140/105 H Pulse Oximetry 100 Oxygen Delivery Me thod Room Air Labs Labs: Laboratory Results - last 24 hr 03/04/22 03/04/22 03/04/22 04:00 06:45 06:45 WBC 11.74 H RBC 4.05 L Hgb 12.7 L Hct 35.6 L MCV 88 MCH 31 MCHC 36 RDW Coeff of Sang 11.5 Plt Count 271 Neut % (Auto) 79.4 H Lymph % (Auto) 8.5 L [place] % (Auto) 11.7 H Eos % (Auto) 0.1 Baso % (Auto) 0.1 Neut # (Auto) 9.30 H Lymph # (Auto) 1.00 [place] # (Auto) 1.40 H Eos # (Auto) 0.00 Baso # (Auto) 0.00 Abs Immat Gran (auto) 0.00 Imm/Tot Granulo (auto) 0.2 VBG pH 7.373 VBG pCO2 35 L VBG pO2 37.4 VBG HCO3 20 L Sodium 135 Potassium 4.2 Chloride 109 Carbon Dioxide 18 L BUN 14 Creatinine 0.6 Estimated Creat Clear 123.94 Estimated GFR 111 Glucose 258 H Lactate Calcium 8.6 Magnesium 1.8 Total Bilirubin 0.4 AST 24 ALT 17 Alkaline Phosphatase 82 Troponin I 0.03 Total Protein 6.5 Albumin 3.7 03/04/22 06:45 WBC RBC Hgb Hct MCV MCH MCHC RDW Coeff of Sang Plt Count Neut % (Auto) Lymph % (Auto) [place] % (Auto) Eos % (Auto) Baso % (Auto) Neut # (Auto) Lymph # (Auto) [place] # (Auto) Eos # (Auto) Baso # (Auto) Abs Immat Gran (auto) Imm/Tot Granulo (auto) VBG pH VBG pCO2 VBG pO2 VBG HCO3 Sodium Potassium Chloride Carbon Dioxide BUN Creatinine Estimated Creat Clear Estimated GFR Glucose Lactate 1.2 Calcium Magnesium Total Bilirubin AST ALT Alkaline Phosphatase Troponin I Total Protein Albumin
[2022-03-05] MEDS: ERYTHROMYCIN 1 GM TUBE 1 APPLIC EYE-BOTH ×2 (00:49→08:48)
--- NOTE | 2022-03-05 02:13 | PC.NURSE ---
Ongoing yellow/green discharge from both eyes. Eyes cleansed with warm washcloth and Erythromycin ointment applied per MD.
[2022-03-05] MEDS: guaiFENesin 100 MG/ML CUP PO (02:38)
[2022-03-05] MEDS: ACETAMINOPHEN 325 MG TABLET 975 MG PO (05:06)
[2022-03-05] MEDS: CARBOXYMETHYLCELLULOSE (REFRESH PLUS) TEARS 1 DROP EYE-BOTH (05:06)
[2022-03-05] MEDS: BENZOCAINE/MENTHOL 1 EACH LOZENGE MUCOUS MEM (05:06)
[2022-03-05 05:12] VITALS: BP 145/88; PULSE 84; RESP 16; TEMP 36.7; O2SAT 98
[2022-03-05 05:13] VITALS: PULSE 84; RESP 16
[2022-03-05 06:51] LABS: Basophils Absolute Auto 0.01 K/uL (0.00-0.30); Basophils Percent Auto 0.1 % (0.0-3.0); Eosinophils Absolute Auto 0.02 K/uL (0.00-0.50); Eosinophils Percent Auto 0.3 % (0.0-7.0); Hematocrit 34.1 % (37.0-53.0); Hemoglobin* 12.2 gm/dL (13.5-17.5); Immature Granulocytes Abs Auto 0.05 K/uL (0.00-0.30); Immature Granulocytes Pct Auto 0.7 %; Lymphocytes Percent Auto 13.7 % (20-44); Mean Corpuscular HGB Conc 36 gm/dL (32-36); Mean Corpuscular Hemoglobin 31 pg (26-34); Mean Corpuscular Volume 87 fL (80-100); Monocytes Percent Auto 15.9 % (0.0-11.0); Neutrophils Absolute Auto 4.95 K/uL (1.7-7.0); Neutrophils Percent Auto 69.3 % (42.0-72.0); Platelet Count* 234 K/uL (140-440); RDW Coefficient of Variation % 11.6 % (11.5-15.5); Red Blood Count 3.91 m/uL (4.30-5.90); White Blood Count* 7.15 K/uL (4.50-11.00)
[2022-03-05 06:52] LABS: HCO3 VBG 25 mmol/L (21-28); PCO2 VBG 37 mmHG (40-50); PO2 VBG 53.6 mmHG (25-47); pH VBG 7.443 (7.32-7.43)
[2022-03-05 07:03] VITALS: PULSE 75
[2022-03-05 07:10] VITALS: RESP 18; O2SAT 98
[2022-03-05 07:12] LABS: Slide Review Reflex No
[2022-03-05 07:14] LABS: Albumin* 3.5 g/dL (3.3-5.0); Chloride* 109 mmol/L (96-114); Sodium* 139 mmol/L (135-149)
[2022-03-05 07:15] VITALS: BP 135/84; PULSE 83; PULSE 84; RESP 18; TEMP 36.6; O2SAT 99
[2022-03-05 07:15] LABS: Potassium* 3.4 mmol/L (3.6-5.1)
[2022-03-05 07:17] LABS: Alanine Aminotransferase* 17 U/L (4-50); Alkaline Phosphatase* 83 U/L (40-150); Aspartate Amino Transferase* 21 U/L (12-35); Bilirubin Total* 0.3 mg/dL (0.1-1.5); Blood Urea Nitrogen* 9 mg/dL (7-30); Carbon Dioxide* 24 mmol/L (20-32); Creatinine* 0.5 mg/dL (0.5-1.5); Est. Creatinine Clearance* 148.73; Estimated Glomerular Filt Rate 117 ml/min; Glucose* 109 mg/dL (60-115); Total Protein* 6.1 g/dL (6.0-8.3)
[2022-03-05 07:18] LABS: Calcium* 8.5 mg/dL (8.4-10.6)
[2022-03-05] MEDS: METOPROLOL SUCCINATE (XL) 50 MG TAB PO (08:48)
[2022-03-05] MEDS: LOSARTAN POTASSIUM 50 MG TABLET PO (08:48)
--- NOTE | 2022-03-05 09:12 | NUTR.NU ---
RDN with MD consult for diabetic teaching in setting of DKA. RDN visited with patient whom agreed to receive educational handouts (Carbohydrate counting for people with diabetes and label reading handouts from [facility] as well as my plateplanner), however he declined education at this time. Patient is known to RDN from outpatient referral - patient had appointment schedule recently related to diabetes however he did not show. Patient expressed interest in visiting with RDN as an outpatient and agreed for RDN to contact him next week to reschedule an outpatient visit.
--- NOTE | 2022-03-05 09:49 | PC.NURSE ---
Discharge. ? Pt was pleasant.? chest pain with coughing po Tylenol and Robitussin was given with relief. Pt also said he has sore eyes. he said they hurt yesterday but did not say anything. c/o eye discomfort, states it feels like there is sandpaper in my eyes? IV fluids where d/c and alter SL was d/c intact. ? :Pt BS ? 106? insulin was given.? scheduled dose. ?; he is eating, drinking and voiding. ? ? Tele shows? sinus Tachycardia. ? he still has complaints of stuff nose and congestion in the throat.? scds are on. ? he is up with SBA. ? he has not been SOB or dizzy. went over discharge packet went over medications, appointments, education and instructions. pt went over and signed personal belonging sheet. all items and paper work packet up. pt walked to ED with staff and got a ride home. ?pt wanted to go home.
--- NOTE | 2022-03-05 13:10 | P.DS_ITS ---
DS: Providers Provider Date Seen: 03/05/22 Date of admission: 03/03/22 15:54 Primary care physician: Jurgen Morrissey MD Admitting Clinician: Cyndy Jenkins MD Consults: Nutrition therapy Attending Physician on discharge: Cyndy Jenkins MD Date of Discharge: 03/05/22 DS: Diagnosis Discharge Diagnosis (1) DKA, type 2: Status: Acute Problem details: - given bicarb and IVF bolus in ED - started on insulin drip for + AG acidosis - on admission, treated with insulin drip, IV fluids, potassium supplementation (all discontinued after resolution of acidosis) - Basal insulin restarted 03/03 pm, continued mealtime insulin with good results - this degree of illness is concerning for type 1DM diagnosis. Consider outpatient Endocrinology f/u (2) Conjunctivitis: Status: Acute Problem details: - bilateral - also noted to have sinusitis symptoms on discharge (3) Cough: Status: Acute Problem details: - no evidence of acute infection by exam or chest x-ray (4) Shortness of breath: Status: Acute Problem details: - likely 2/2 acidosis, no concern for acute cardiac or respiratory process - troponin remained negative during stay - resolved with resolution of acidosis DS: Summary Hospital Course Hospital Course: 61-year-old male with known insulin-dependent type 2 diabetes and poor outpatient control, admitted to the hospital on 03/03/2022 in DKA. Patient required bicarbonate, insulin drip, significant fluid resuscitation in the emergency room, prior to hospital admission. He was able to transition off the insulin drip with resolution of acidosis within 12 hours of admission. We resumed his home doses of insulin, which he tolerated well. He admits that his outpatient plans with insulin has not been 100%. During stay, patient was also noted to have symptoms of sinusitis and bilateral conjunctivitis. Erythromycin ointment was initiated, we will also cover him with Augmentin upon discharge. Recommend compliance with insulin regimen and diabetic diet, close PCP follow-up arranged upon discharge. Patient discharged home in much improved condition 03/05/2022 Status at Discharge Functional status at discharge: independent ambulation Time Spent with Patient Time attestation: Total time spent providing and/or coordinating discharge services: Time spent: Greater than 30 minutes Specific discharge activities: Care coordination, discharge medication reconciliation, insulin orders Exam Narrative: Exam Narrative: GEN: Alert, oriented, answering questions appropriately. + laryngitis noted HEENT: Normal external ears, EOMIs bilaterally, positive conjunctival injection with discharge bilaterally CV: RRR, No concerning murmurs, rubs, or gallops R: LCTA bilaterally without concerning wheezing, rales, or rhonchi Ext: wwp, no concerning edema Skin: No concerning skin lesions or rashes on exposed skin Neuro: Nonfocal Psych: Appropriate Const: Vital Signs, click to edit/add: Vital Signs - 24 hr 03/04/22 15:07 03/04/22 15:09 03/04/22 15:26 Temperature 98.8 F Pulse Rate 92 Pulse Rate [Left P ulse Oximeter] 96 Respiratory Rate 18 20 Blood Pressure [Le ft Arm] 112/74 Pulse Oximetry 95 96 Oxygen Delivery Wa thod Room Air Room Air 03/04/22 15:27 03/04/22 19:00 03/04/22 19:00 Temperature 98.6 F Pulse Rate Pulse Rate [Left P ulse Oximeter] 96 93 95 Respiratory Rate 20 20 18 Blood Pressure [Le ft Arm] 110/71 Pulse Oximetry 93 Oxygen Delivery Wa thod Room Air 03/04/22 23:00 03/04/22 23:00 03/04/22 23:00 Temperature Pulse Rate 81 Pulse Rate [Left P ulse Oximeter] 94 Respiratory Rate 18 18 Blood Pressure [Le ft Arm] Pulse Oximetry 92 Oxygen Delivery Wa thod Room Air 03/04/22 23:00 03/05/22 05:12 03/05/22 05:13 Temperature 97.7 F 98.0 F Pulse Rate Pulse Rate [Left P ulse Oximeter] 80 84 84 Respiratory Rate 18 16 16 Blood Pressure [Le ft Arm] 140/105 H 145/88 H Pulse Oximetry 100 98 Oxygen Delivery Wa thod Room Air Room Air 03/05/22 07:03 03/05/22 07:10 03/05/22 07:15 Temperature Pulse Rate 75 Pulse Rate [Left P ulse Oximeter] 84 Respiratory Rate 18 18 Blood Pressure [Le ft Arm] Pulse Oximetry 98 Oxygen Delivery Wa thod Room Air 03/05/22 07:15 Temperature 97.9 F Pulse Rate Pulse Rate [Left P ulse Oximeter] 83 Respiratory Rate 18 Blood Pressure [Le ft Arm] 135/84 Pulse Oximetry 99 [facility] DS: Data Data Completed and Pending Labs on day of discharge: Labs from last 24 hours 03/05/22 03/05/22 03/05/22 06:25 06:25 06:25 WBC 7.15 RBC 3.91 L Hgb 12.2 L Hct 34.1 L MCV 87 MCH 31 MCHC 36 RDW Coeff of Sang 11.6 Plt Count 234 Neut % (Auto) 69.3 Lymph % (Auto) 13.7 L [place] % (Auto) 15.9 H Eos % (Auto) 0.3 Baso % (Auto) 0.1 Neut # (Auto) 4.95 Lymph # (Auto) 1.00 [place] # (Auto) 1.10 H Eos # (Auto) 0.02 Baso # (Auto) 0.01 Abs Immat Gran (auto) 0.05 Imm/Tot Granulo (auto) 0.7 VBG pH 7.443 H VBG pCO2 37 L VBG pO2 53.6 H VBG HCO3 25 Sodium 139 Potassium 3.4 L Chloride 109 Carbon Dioxide 24 BUN 9 Creatinine 0.5 Estimated Creat Clear 148.73 Estimated GFR 117 Glucose 109 Calcium 8.5 Total Bilirubin 0.3 AST 21 ALT 17 Alkaline Phosphatase 83 Total Protein 6.1 Albumin 3.5 Discharge Plan Discharge Disposition: Home, Self-Care Date of Admission: 03/03/22 15:54 Attending Provider on Discharge: Cyndy Jenkins Primary Care Provider: Jurgen Morrissey Condition: Improved Anticipated Discharge Date/Time: 03/05/22 11:00 Discharge Medications: New insulin aspart U-100 [Novolog Flexpen U-100 Insulin] 100 unit/mL (3 mL) insulin pen 12 unit subcut TID Qty: 15 0RF Rx Instructions: with meals amoxicillin-pot clavulanate [Augmentin] 500-125 mg tablet 1 tab PO Q8H Qty: 15 0RF erythromycin 5 mg/gram (0.5 %) ointment 1 applic ophthalmic (eye) DAILY 5 Days Qty: 3.5 0RF Rx Instructions: bilateral eyes Continued aspirin 81 mg tablet,delayed release (DR/EC) 81 mg PO DAILY gabapentin 100 mg capsule 100 - 300 mg PO HS Label Comments: TAKE 1-3 CAPSULES BY MOUTH DAILY AT BEDTIME. nitroglycerin 0.4 mg tablet, sublingual 0.4 mg sublingual ONCE PRN Label Comments: TAKE 1 TABLET SUBLINGUALLY EVERY 5 MIN NEEDED tadalafil 20 mg tablet 20 mg PO .prn Label Comments: TAKE ONE TABLET BY MOUTH DIRECTED NEEDED EVERY 48-72 HOURS . (DME) pen needle, diabetic [BD Jaymie 2nd Gen Pen Needle] 32 gauge x 5/32 needle MISCELLANEOUS Qty: 400 3RF Rx Instructions: 1 EA SUBQ QID (DME) blood-glucose meter [Blood Glucose Monitoring] Kit See Rx Instructions .Route Qty: 1 0RF Rx Instructions: As directed quetiapine 25 mg tablet 25 mg PO BID Qty: 30 0RF Rx Instructions: take 1 tablet twice daily for mood albuterol sulfate 90 mcg/actuation HFA aerosol inhaler 2 puff inhalation Q6H PRN (Reason: shortness of breath or wheezing) Qty: 8.5 3RF losartan 50 mg tablet 50 mg PO DAILY atorvastatin 80 mg tablet 80 mg PO HS omeprazole 20 mg capsule,delayed release(DR/EC) 20 mg PO DAILY metformin 500 mg tablet extended release 24 hr 1,000 mg PO DAILY (DME) Contour Next Test Strips Strip MISCELLANEOUS Qty: 100 4RF Rx Instructions: Test QID metoprolol succinate 50 mg tablet extended release 24 hr 50 mg PO DAILY Qty: 90 1RF ([facility]) Dexcom G6 Sensor Device See Rx Instructions .ROUTE .MEDSUPPLY Qty: 9 3RF Rx Instructions: As directed ([facility]) Dexcom G6 Transmitter Device See Rx Instructions .ROUTE .MEDSUPPLY Qty: 1 3RF Rx Instructions: As directed ([facility]) Dexcom G6 Lead Applications Developer Misc See Rx Instructions .ROUTE .MEDSUPPLY Qty: 1 0RF Rx Instructions: As directed Changed insulin glargine [Lantus Solostar U-100 Insulin] 100 unit/mL (3 mL) insulin pen 55 unit SUBCUT HS 30 Days Qty: 15 0RF Discontinued naproxen sodium 220 mg capsule 220 mg PO DAILY PRN Label Comments: TAKE 1 CAPSULE BY MOUTH TWICE A DAY NEEDED ondansetron HCl 4 mg tablet 4 mg PO TID PRN (Reason: nausea and vomiting) insulin aspart U-100 [Novolog Flexpen U-100 Insulin] 100 unit/mL (3 mL) insulin pen 10 unit SUBCUT TIDWM Discharge Orders: Discharge Order (Routine); Ordered 03/05/22 Ordered By: Cyndy Jenkins Patient Education: Amoxicillin/Clavulanate Potassium (By mouth), Erythromycin (Into the eye), Insulin Aspart, Recombinant (By injection) (NovoLOG, NovoLOG FlexPen), Diabetic Ketoacidosis (DC), Meal Planning with Diabetes Exchanges (DC) Additional Instructions: Make sure you're taking your insulin as prescribed and checking your blood sugars regularly. See Dr. Morrissey next week and bring your blood sugar log to your appointment. For your pinkeye and illness, antibiotics at pharmacy. Try honey and NyQuil/DayQuil for symptoms as well. Activity Level: Activity as Tolerated Discharge Diet: Diabetic Follow Up Appointments: Jurgen Morrissey MD [Primary Care Provider] - 03/09/22 2:00 pm Forms: [employer] Info Instructions
== END 2022-03-05 09:30 | disposition home or self-care (01) | DRG 639 ==
LOC: ED 10:04 → MEDSURG 15:38
PROVIDERS: Admitting Provider Family Medicine; Emergency Provider Emergency Medicine; PCP Family Medicine; Visit Provider Family Medicine
DX: E11.10 Type 2 diabetes mellitus with ketoacidosis without coma (principal); E11.65 Type 2 diabetes mellitus with hyperglycemia; E87.5 Hyperkalemia; R06.02 Shortness of breath; Z79.4 Long term (current) use of insulin; Z79.84 Long term (current) use of oral hypoglycemic drugs; F41.9 Anxiety disorder, unspecified; I10 Essential (primary) hypertension; H10.33 Unspecified acute conjunctivitis, bilateral; J01.90 Acute sinusitis, unspecified; R45.1 Restlessness and agitation; F10.10 Alcohol abuse, uncomplicated; Z87.891 Personal history of nicotine dependence; E78.5 Hyperlipidemia, unspecified
CPT/HCPCS: 36415; 71045; 80048; 80053; 80076; 81001; 82077; 82803; 82962; 83605; 83690; 83735; 83880; 84484; 85025; 85379; 86140; 87502; 87631; 87634; 87635; 93005; 94761; 99285; 99291; A9270; C9113; J1650; J2060; J3480; J3590; J7030

== ENCOUNTER 2022-05-31 08:06 | Outpatient (CLI) | payer MEDICAID, SELFPAY ==
[2022-05-31 14:11] LABS: Albumin* 4.3 g/dL (3.3-5.0); Chloride* 105 mmol/L (96-114); Potassium* 5.1 mmol/L (3.6-5.1); Sodium* 138 mmol/L (135-149)
[2022-05-31 14:13] LABS: Aspartate Amino Transferase* 27 U/L (12-35); Bilirubin Total* 0.5 mg/dL (0.1-1.5); Carbon Dioxide* 29 mmol/L (20-32); Creatinine* 0.8 mg/dL (0.5-1.5); Estimated Glomerular Filt Rate 101 ml/min; Total Protein* 6.9 g/dL (6.0-8.3)
[2022-05-31 14:14] LABS: Alanine Aminotransferase* 24 U/L (4-50); Alkaline Phosphatase* 69 U/L (40-150); Blood Urea Nitrogen* 19 mg/dL (7-30); Glucose* 175 mg/dL (60-115)
[2022-05-31 14:15] LABS: Calcium* 9.4 mg/dL (8.4-10.6)
== END 2022-05-31 08:07 | disposition home or self-care (01) ==
PROVIDERS: PCP Family Medicine; Visit Provider Family Medicine
DX: D64.9 Anemia, unspecified (principal); E11.40 Type 2 diabetes mellitus with diabetic neuropathy, unspecified; E78.00 Pure hypercholesterolemia, unspecified; I10 Essential (primary) hypertension
CPT/HCPCS: 80053; 82043; 82570

== ENCOUNTER 2022-05-31 21:21 | Emergency (ER) | payer MEDICAID, SELFPAY ==
[2022-05-31] VITALS (9 sets, daily range): BP systolic 116–164; BP diastolic 65–97; PULSE 100–111; RESP 16–22; TEMP 36.6; O2SAT 95–98
--- NOTE | 2022-05-31 22:25 | CRLHL7_ITS ---
For Patients: As a result of the Century Cures Act, medical imaging exams and procedure reports are released immediately into your electronic medical record. You may view this report before your referring provider. If you have questions, please contact your health care provider. INDICATION: MID CHEST PRESSURE CHEST, ONE VIEW An AP radiograph of the chest was performed. Comparison: 03/03/2022. The lungs appear clear and no pleural effusions are identified. The cardiomediastinal silhouette and pulmonary vasculature appear normal, as do the visualized bones aside from old left rib fractures. IMPRESSION: No acute intrathoracic abnormality identified. CARSON CONTRERAS MD [employer] Dictated by: Raulito Contreras MD @ 05/31/2022 23:15:08 (Electronically Signed)
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
[2022-05-31 22:29] LABS: Troponin, Point-of-Care* 0.01 ng/ml (0.01-0.04)
[2022-05-31 22:34] LABS: Appearance Urine Clear (Clear); Bilirubin Urine Negative (Negative); Blood Urine Negative (Negative); Color Urine Yellow (Yellow); Glucose Urine 1+ (Negative); Ketones Urine Negative (Negative); Leukocyte Esterase Urine Negative (Negative); Nitrite Urine Negative (Negative); Protein Urine Negative (Negative); Specific Gravity Urine 1.015 (1.000-1.030); Urobilinogen Urine 0.2 (0.2-1.0); pH Urine 7.5 (5.0-8.5)
[2022-05-31 22:47] LABS: Bacteria Urine Few; RBC Urine 0-2 (0-2); Squamous Epithelial Cell Urine Few (None-Few); WBC Urine 0-2 (0-5)
[2022-05-31] MEDS: 0.9 % SODIUM CHLORIDE 1000 ml 1,000 ML IV (22:53)
[2022-05-31 23:10] LABS: Basophils Absolute Auto 0.01 K/uL (0.00-0.30); Basophils Percent Auto 0.2 % (0.0-3.0); Eosinophils Absolute Auto 0.13 K/uL (0.00-0.50); Eosinophils Percent Auto 2.5 % (0.0-7.0); Hematocrit 39.4 % (37.0-53.0); Hemoglobin* 13.7 gm/dL (13.5-17.5); Immature Granulocytes Abs Auto 0.04 K/uL (0.00-0.30); Immature Granulocytes Pct Auto 0.8 %; Lymphocytes Absolute Auto 1.19 K/uL (0.90-2.90); Lymphocytes Percent Auto 23.3 % (20-44); Mean Corpuscular HGB Conc 35 gm/dL (32-36); Mean Corpuscular Hemoglobin 31 pg (26-34); Mean Corpuscular Volume 90 fL (80-100); Monocytes Percent Auto 11.5 % (0.0-11.0); Neutrophils Absolute Auto 3.15 K/uL (1.7-7.0); Neutrophils Percent Auto 61.7 % (42.0-72.0); Platelet Count* 201 K/uL (140-440); RDW Coefficient of Variation % 11.6 % (11.5-15.5); Red Blood Count 4.38 m/uL (4.30-5.90); White Blood Count* 5.11 K/uL (4.50-11.00)
[2022-05-31 23:15] LABS: Slide Review Reflex No
[2022-06-01 00:01] VITALS: BP 143/85; PULSE 103; RESP 16; O2SAT 98
[2022-06-01 00:05] LABS: Ethanol* 0.01 % (0.01-0.03)
[2022-06-01 00:06] LABS: Blood Urea Nitrogen* 18 mg/dL (7-30); C Reactive Protein* < 0.5 mg/dL (0.5-1.0); Calcium* 8.8 mg/dL (8.4-10.6); Carbon Dioxide* 24 mmol/L (20-32); Chloride* 106 mmol/L (96-114); Creatinine* 0.7 mg/dL (0.5-1.5); Estimated Glomerular Filt Rate 105 ml/min; Glucose* 213 mg/dL (60-115); Magnesium* 1.8 mg/dL (1.5-2.6); NT Pro B Type NatriureticPept* < 20 pg/mL; Potassium* 4.3 mmol/L (3.6-5.1); Sodium* 137 mmol/L (135-149); Troponin I* < 0.01 ng/mL (0.01-0.04)
[2022-06-01 00:09] LABS: D Dimer Quantitative* < 0.27 ug/ml (0.00-0.50)
[2022-06-01 00:21] VITALS: BP 146/93; PULSE 107; RESP 16; O2SAT 97
[2022-06-01 00:31] VITALS: BP 153/89; PULSE 99; RESP 16; O2SAT 98
[2022-06-01 00:45] VITALS: BP 164/97; PULSE 100; RESP 16; TEMP 36.6
== END 2022-06-01 00:46 | disposition home or self-care (01) ==
PROVIDERS: Emergency Provider Family Medicine; PCP Family Medicine
DX: R07.89 Other chest pain (principal); F41.9 Anxiety disorder, unspecified; R00.0 Tachycardia, unspecified
CPT/HCPCS: 36415; 71045; 80048; 81001; 81003; 82077; 82962; 83735; 83880; 84484; 85025; 85379; 86140; 87086; 93005; 94761; 99284; J7030

== ENCOUNTER 2022-06-16 07:06 | Day surgery (SDC) | payer MEDICAID, SELFPAY ==
[2022-06-16] VITALS (7 sets, daily range): BP systolic 135–160; BP diastolic 78–102; PULSE 63–70; RESP 15–17; TEMP 36.3–36.7; O2SAT 98–100; BMI 28.1
[2022-06-16] MEDS: BUPIVACAINE 0.5% 30 ML INJECTION (07:20)
--- NOTE | 2022-06-16 07:28 | SUR.PREOP ---
SAME DAY SURGERY LOCAL INJECTION SITE VERIFICATION WAS PERFORMED BY SURGEON/PA AND PATIENT PRIOR TO LOCAL ANESTHETIC BEING INJECTED TO OPERATIVE SITE.
--- NOTE | 2022-06-16 08:03 | SUR.OPER ---
PATIENT QUESTIONS ANSWERED SATISFACTORILY PREOPERATIVELY.?PATIENT BROUGHT TO OR #3 PER WHEELCHAIR.? Patient positioned supine on OR #3 bed.? The perioperative?team supported arms bilaterally on arm boards. Final approval of positioning by surgeon.?
--- NOTE | 2022-06-16 08:26 | PM.ORPRC ---
Procedure Note Date of procedure: 06/16/22 Procedure: PREOPERATIVE DIAGNOSIS: 1. Left long finger flexor tenosynovitis - trigger finger POSTOPERATIVE DIAGNOSIS: 1. Left long finger flexor tenosynovitis - trigger finger PROCEDURE: 1. Left long flexor tendon sheath open release (A1 cruzito) SURGEON: Shamar Kingsley MD. FIRMWARE DEVELOPER: Brayden Pan PA-C ANESTHESIA: Local anesthetic 4ml via 50:50 mixture of 1% Lidocaine with epi and 0.5% marcaine plain EBL: 2ml IMPLANTS: None TOURNIQUET: None COMPLICATIONS: None evident INDICATIONS: The patient is a pleasant 62-year-old who has experienced left long catching/triggering for number of months. It has progressively gotten worse. Given the failure of nonoperative management, and how this affects daily life, surgery was recommended. DESCRIPTION OF PROCEDURE: Following a thorough discussion of risks, benefits, and alternatives consent was obtained and the operative digit(s) was marked. The patient was brought to the operating room and placed supine on the operating table. Local anesthesia induction was undertaken in preop holding. No antibiotics were administered as this was planned to be a local case only. Proper time-out was performed identifying proper patient, site, and procedure. The operative extremity was prepped and draped in the appropriate sterile fashion using ChloraPrep. A incision was made on the palmar surface of the hand overlying the MCP joint region of the appropriate digit(s) respecting the palmar creases being cautious not to cross these perpendicularly. Sharp incision through the skin, and blunt dissection through subcutaneous tissue allowing protection of crossing neurologic structures. The A1 cruzito was visualized directly. It was incised sharply with a 15 blade. It was released completely from its distal to proximal extent under direct visualization. The tendon was inspected and found to be mildly striated consistent with some friction. Otherwise, it was intact. The tendon was removed out of the wound, and further inspected. The patient was asked to manually flex and extend the digits and showed no further catching. The catching which was visualized after tourniquet inflation, was no longer evident with reproduction of a manual fist and relaxation. Closure was performed with 4-O nylon in interrupted fashion. Soft dressings were applied, and the patient was transferred to the recovery room in stable condition. PLAN: 1. Encourage elevation of the operative extremity. 2. Range of motion and icing of the fingers and hand/wrist as tolerated/needed. 3. Ibuprofen/acetaminophen and/or Percocet as needed for pain control. 4. Follow up with PA visit in 12-16 days for wound check and suture removal.
== END 2022-06-16 08:30 | disposition home or self-care (01) ==
PROVIDERS: PCP Family Medicine; Visit Provider Orthopaedic Surgery Sports Medicine
PROC: (CPT 26055; principal; 2022-06-16 08:00)
DX: M65.332 Trigger finger, left middle finger (principal); M65.842 Other synovitis and tenosynovitis, left hand
CPT/HCPCS: 26055; J3490

== ENCOUNTER 2022-11-02 09:51 | Outpatient (CLI) | payer MEDICAID, SELFPAY | END 2022-11-02 09:52 | disposition home or self-care (01) | PROVIDERS: PCP Family Medicine; Visit Provider Family Medicine | DX: E13.10 Other specified diabetes mellitus with ketoacidosis without coma (principal); R68.82 Decreased libido; I10 Essential (primary) hypertension; D64.9 Anemia, unspecified; E11.10 Type 2 diabetes mellitus with ketoacidosis without coma; R53.83 Other fatigue | CPT/HCPCS: 80048; 84270; 84402; 84403 ==

== ENCOUNTER 2023-02-01 07:46 | Outpatient (CLI) | payer MEDICAID, SELFPAY ==
--- NOTE | 2023-02-01 08:00 | CRLHL7_ITS ---
For Patients: As a result of the Century Cures Act, medical imaging exams and procedure reports are released immediately into your electronic medical record. You may view this report before your referring provider. If you have questions, please contact your health care provider. Indication: FOLLOW UP- SINGLE PULMONARY NODULE Technique: Noncontrast CT chest Please note that all CT scans at this facility use dose modulation, iterative reconstruction, and/or weight-based dosing when appropriate to reduce radiation dose to as low as reasonably achievable. Comparison: 09/10/2022 Findings: Stable sub centimeter lymph nodes in the mediastinum and axilla. 5.1 cm hiatal hernia. Stable cyst arises from the upper pole of the right kidney. No pericardial or pleural effusion. Vascular calcifications. No thyroid nodule. Stable 5 millimeter nodule within the right middle lobe and stable 4 millimeter nodule in the right middle lobe. No additional nodules. Mild atelectasis/scarring bilaterally. Impression: Stable 5 millimeter and 4 millimeter nodules within the right middle lobe. 5.1 cm hiatal hernia. Please note that all CT scans at this facility use dose modulation, iterative reconstruction, and/or weight-based dosing when appropriate to reduce radiation dose to as low as reasonably achievable. Dictated by Joao Barragan MD @ 02/01/2023 9:50:46 AM (Electronically Signed)
== END 2023-02-01 07:47 | disposition home or self-care (01) ==
LOC: CT 07:46
PROVIDERS: PCP Family Medicine; Visit Provider Family Medicine
DX: R91.1 Solitary pulmonary nodule (principal); K44.9 Diaphragmatic hernia without obstruction or gangrene
CPT/HCPCS: 71250

== ENCOUNTER 2024-07-30 07:36 | Outpatient (CLI) | payer MEDICAID, SELFPAY ==
[2024-08-01 02:08] LABS: Testosterone, Adult Male 388 ng/dL (300-720)
== END 2024-07-30 07:37 | disposition home or self-care (01) ==
LOC: NPINS 07:38
PROVIDERS: PCP Family Medicine; Visit Provider Physician Assistant
DX: E29.1 Testicular hypofunction (principal)
CPT/HCPCS: 84403

== ENCOUNTER 2024-10-05 08:42 | Outpatient (CLI) | payer MEDICAID, SELFPAY | END 2024-10-05 08:43 | disposition home or self-care (01) | PROVIDERS: PCP Family Medicine; Visit Provider Family Medicine | DX: I10 Essential (primary) hypertension (principal); E11.40 Type 2 diabetes mellitus with diabetic neuropathy, unspecified; E78.00 Pure hypercholesterolemia, unspecified; D64.9 Anemia, unspecified; R53.83 Other fatigue; R41.3 Other amnesia; Z79.4 Long term (current) use of insulin | CPT/HCPCS: 80061; 80076; 82043; 82570; 82607; 84443 ==

== ENCOUNTER 2024-10-17 08:14 | Outpatient (CLI) | payer MEDICAID, SELFPAY ==
--- NOTE | 2024-10-17 08:15 | CRLHL7_ITS ---
For Patients: As a result of the Century Cures Act, medical imaging exams and procedure reports are released immediately into your electronic medical record. You may view this report before your referring provider. If you have questions, please contact your health care provider. Indication: Amnesia. Cognitive issues. Technique: Noncontrast sagittal T1, axial FLAIR, T2, diffusion weighted sequences are provided. No comparisons. Findings: The ventricles, sulci and gyri are normal size, shape and contour for age. The midline structures are centrally located with no evidence of shift. There are no suspicious intra or extra-axial fluid collections. No region of restricted diffusion. Expected flow voids in the cavernous carotids and basilar artery. Miniscule scattered foci of increased T2 signal in the white matter of the frontal lobes that are nonspecific. Impression: 1. No radiographic evidence of acute intracranial abnormalities. 2. Miniscule scattered supratentorial white matter change that is non-specific. Differential considerations include changes related to diabetes, hypertension, collagen vascular disease or migranous headaches. Dictated by Elijah Brantley MD @ 10/17/2024 4:58:31 PM (Electronically Signed)
== END 2024-10-17 08:15 | disposition home or self-care (01) ==
LOC: MRI 08:15
PROVIDERS: PCP Family Medicine; Visit Provider Family Medicine
DX: R41.3 Other amnesia (principal); E11.40 Type 2 diabetes mellitus with diabetic neuropathy, unspecified; E78.00 Pure hypercholesterolemia, unspecified; Z79.4 Long term (current) use of insulin
CPT/HCPCS: 70551

== ENCOUNTER 2024-12-20 08:10 | Outpatient (CLI) | payer MEDICAID, SELFPAY | END 2024-12-20 08:11 | disposition home or self-care (01) | PROVIDERS: PCP Family Medicine; Visit Provider Family Medicine | DX: Z80.42 Family history of malignant neoplasm of prostate (principal) | CPT/HCPCS: G0103 ==